=== PATIENT | male | born 1940 | race Caucasian/White ===

== ENCOUNTER → 2017-11-26 | Day surgery (SDC) | payer OTHER ==
[~2017-11-26] VITALS: Ht 177.8 cm; Wt 87.0 kg
[~2017-11-26] MED LIST: ACET-1257 PO; ACETAMINOPHEN 325 MG TAB PO PRN; ADENOSINE IV SOLN 3 MG/ML 20 ML VIAL ONE; ALFU10TA2 PO; ASPEC81 PO; ATV/1 PO; CHOL200010 PO; CLBCR15 TOP; CMBIN INH; FENTANYL CITRATE INJ 50 MCG/1 ML 2 ML VIAL ONE; FLUT220A INH; HEPARIN SOD (PORCINE) 1000 UNIT/ML 10 ML VIAL ONE; LPT40 PO; METO25TA3 PO; METR0.7536; MIDAZOLAM HCL 1 MG/ML 2ML VIAL ONE; NITROGLYCERIN/D5W 100MCG/ML 20ML SYR ONE; ONDANSETRON INJ 2 MG/ML 2 ML VIAL IV PRN; OXYC-57 PO; SODIUM CHLORIDE 0.9% 1000ML 250 ML IV PRN; SPRIN/30 INH; VNTHFA/IN INH; WARF5TAB90 PO
[2017-11-26 08:29] VITALS: BP 156/88; PULSE 78; TEMP 36.7; O2SAT 98; Ht 177.8 cm; Wt 87.0 kg
[2017-11-26 08:52] LABS: INR 1.2 (0.9-1.1)
--- NOTE | 2017-11-26 09:03 | History & Physical Bridge Note ---
H&P Re-Evaluation Bridge Note: I have examined the patient, reviewed the History & Physical and in the interval since the performance of the History & Physical I have noted the following changes of clinical significance: No changes noted
--- NOTE | 2017-11-26 09:25 | Pre Sedation Assessment ---
Pre Sedation Assessment General Date of Sedation: Nov 26, 2017. Vital Signs Past 12 Hours Date Time Temp Pulse Resp B/P (MAP) Pulse Ox O2 Delivery O2 Flow Rate FiO2 11/26/17 08:29 36.7 78 18 156/88 (110) 98 Room Air Review Cardiovascular: + irregularly irregular Lungs: lungs clear, normal breath sounds Pre-Sedation Airway Assessment Smoking Status: Former Smoker Hx of Sleep Apnea: No Short Thick Neck: No Thyro-mental Distance: > 3 Finger Breadths Oral Cavity: WNL Mallampati Classification: Class II ASA Classification: Class II NPO Status Date of Last Intake of Fluids: Nov 25, 2017 Date of Last Intake of Solids: Nov 25, 2017 Procedure Planning Contraindications for Sedation: None Current Medications Reviewed: Yes Notes The planned sedation has been discussed with the patient. Informed Consent was obtained. I have identified the patient, determined the appropriateness of sedation and have assessed the patient immediately prior to the procedure. All medicine(s) and interventions are by my order.
--- NOTE | 2017-11-26 10:38 | Post Sedation Assessment ---
Post Sedation Assessment General Date of Sedation Nov 26, 2017. Vital Signs: Vital Signs Past 12 Hours Date Time Temp Pulse Resp B/P (MAP) Pulse Ox O2 Delivery O2 Flow Rate FiO2 11/26/17 08:29 36.7 78 18 156/88 (110) 98 Room Air Post Procedure Recovery Score Activity: (2) Moves 4 extremities * Respiration: (2) Deep breath/cough Circulation: (2) +/-20% PreAnes Value Consciousness: (2) Fully Awake Oxygen Saturation: (2) > 92% On Room Air Post Anesthesia Score: 10 Discharge Sedation Level of Care: Fast Track Phase II Post Sedation Plan On clinical assessment, the patient appears to have tolerated the sedation without complications. Patient is recovering as anticipated. Patient will continue to be monitored by nursing and may be discharged when sedation discharge criteria are met per below protocol. Upon Completions of procedure and additional 15 minutes continue every 5 minute vital signs and the P.A.R. score; then discharge to a Phase I or Fast Track to Phase II per the following guidelines: * Discharge Patient to appropriate Phase II area if PAR is 8 or greater or return to pre- procedure baseline. The post - procedure orders will be as directed. * If PAR score is less than 8 or not return to pre-procedure baseline then patient will follow Phase I monitoring till PAR is reached for Phase II. The Phase I may be done in procedure room or may call to secure a Phase I area. * If naloxone or flumazenil are used for reversal, hold in Phase I for an additional 60 -120 minutes before discharge to Phase II. Please call the Sedation Physician to re-evaluate and complete post-note for discharge to Phase II area. Do NOT discharge from procedure sedation or Phase 1 until post- sedation evaluation note is complete by procedure /sedation MD Sedation Discharge Instructions to be given to the patient at discharge to home.
--- NOTE | 2017-11-26 11:02 | Cardiac Catheterization ---
Procedure Note Procedure Date Nov 26, 2017. Pre-Procedure Diagnosis Cardiothoracic Symptom AUC Score 7 Post-Procedure Diagnosis Moderate CAD Procedure(s) Performed Coronary Angiography, Left Heart Cath, Right Heart Cath Chief Sustainability Officer Dr. Page Partition Notcher(s) Diogenes [employer] [place] Estimated Blood Loss 8cc Medication(s) Fentanyl, Versed, Lidocaine 1% Summary of Findings Calcified LAD with focasl severe calcification proximally with 60% stenosis followed by a long moderately calcified 60% stenosis. Evidence of left to right shunt with step up in RV. Hemodynamics Rest Ao: 162/116/76 Final Ao: 156/113/76 LV: 163/5/12 RA: 7mmHg Sao2 75% SVC SaO2 75% RV: 37/5/7mmHg SaO2 78% PA: 33/15/23mmHg SaO2 79% PW: 14 Recommendations management recommendations (FFR LAD) Specimens None Radiation Exposure (mGy) 1135 Contrast (mls) 55 Anesthesia Moderate sedation. Start: 0948. End 1035. 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 Mild diffuse luminal irregularities 10-30%) D1 (% Stenosis): Ostial (30% calcified), Mid (30%, diffuse mild calcification) , Distal (10-20% diffuse) Circumflex (% Stenosis): Proximal (30%) OM1 (% Stenosis): Proximal (10%), Mid (diffuse 10-20%), Distal (30%) RCA (% Stenosis): Proximal (10%), Mid (30% long calcified segment), Distal (20 % long calcified segment) R PDA (% Stenosis): Normal R PL2 (% Stenosis): Proximal (30%)
--- NOTE | 2017-11-26 11:06 | Discharge Instructions ---
Discharge Instructions Procedure Procedure Date: Nov 26, 2017. Reason for Visit: Sob *[place] To Do. Discharge Discharge Date: Nov 26, 2017. Discharge Diagnosis: Moderate coronary artery disease normal pulmonary arterial pressures Left to right intracardiac shunt Last Recorded Wt (Kilograms): 87 Anesthesia Post Anesthesia Instructions: If you have had General Anesthesia or IV Sedation: * Do not drive today. * Resume driving when surgeon permits. * Do not make important decisions or sign legal documents today. * Call surgeon for: 1. Temperature elevations greater than 101 degrees F. 2. Uncontrollable pain. 3. Excessive bleeding. 4. Persistent nausea and vomiting. 5. Medication intolerance (nausea, vomiting or rash). * For nausea and vomiting use only clear liquids such as: tea, soda, bouillon until nausea subsides, then gradually increase diet as tolerated. * If you have any concerns or questions, call your surgeon's office. If physician is unavailable and it is an emergency, call 911 or go to the nearest emergency room. Instructions Activity Recommendations: limitations as noted below Return to School/Work: with the following limitations Recommended Home Diet: low sodium, low cholesterol Allergies: Coded Allergies: Finasteride (Verified Adverse Reaction, Mild, nervousness/tremors, 02/22/14 ) Provider Instructions ACTIVITY RECOMMENDATIONS: It is common to feel weak and fatigue for a few days. * Do not drive or operate any motorized equipment for the next three days. * Limit stair usage (2 or 3 trips a day only) for the next three days. * Do not lift anything heavier than 10 pounds for the next three days. * Do not engage in vigorous exercise or any sports for the next five days. * You may shower the day after your procedure, but do not immerse the area for three days. Cleanse the site gently with soap and water. SPECIAL CARE INSTRUCTIONS: * You may replace the pressure dressing or band-aid the morning after the procedure. * After your procedure, it is normal to have a small bruise or small lump at the site. Examine your site daily for any change in the bruise or lump, redness, swelling, drainage or numbness. Notify your doctor if any change. BLEEDING: * If there is a small amount of bleeding at the site, lie down and apply firm pressure with a clean cloth for ten minutes. When the bleeding stops, lie quietly keeping the procedure limb straight for six hours. Notify your doctor as soon as possible. * If the bleeding does not stop after ten minutes or if there is a large amount of bleeding or spurting, call 911 immediately. Continue to lie down and hold firm pressure until help arrives. SKIN IRRITATION: * You may experience some redness and/or swelling in the area where radiation was administered. If any skin irritation occurs, please contact your family physician. FOLLOW UP VISIT: Keep any scheduled doctor appointments. Follow Up Follow-up with: Dr. Ly as scheduled. Yuri Ferrari Recommendations: Call your doctor if: * Temperature above 101 degrees * Pain not relieved by pain medicine ordered * There is increased drainage or redness from any incision * You have any unanswered questions or concerns. Your Doctors Instructions noted above were prepared by provider Angel Page. Patient Signature Section: Patient Instructions Signature Page Mark Dumont Patient (or Guardian) Signature/Date: I have read and understand the instructions given to me by my caregivers. Caregiver/RN/Doctor Signature/Date: The above-named patient and/or guardian has received patient instructions on this date. + Original Patient Signature Page (only) stays with chart. Please make copy for patient.
[2017-11-26 15:00] VITALS: BP 144/74; PULSE 75; O2SAT 95
== END | disposition home or self-care (01) ==
LOC: C.CATH 08:18
PROVIDERS: ATTEND Internal Medicine Cardiovascular Disease
DX: R06.00 Dyspnea, unspecified (principal); E78.5 Hyperlipidemia, unspecified; F41.1 Generalized anxiety disorder; J44.9 Chronic obstructive pulmonary disease, unspecified; I48.2 Chronic atrial fibrillation; I25.10 Atherosclerotic heart disease of native coronary artery without angina pectoris; K21.9 Gastro-esophageal reflux disease without esophagitis; Z79.01 Long term (current) use of anticoagulants

== ENCOUNTER 2023-12-31 08:55 | Inpatient (IN) ==
--- NOTE | 2023-12-16 13:02 | PAT Medication Instructions ---
Medication Instructions Date of Service December 16, 2023 Home Medications aspirin 81 mg capsule 81 mg PO QAM atorvastatin 40 mg tablet 40 mg PO HS cholecalciferol (vitamin D3) 125 mcg (5,000 unit) tablet (Vitamin D3) 125 mcg PO QAM clobetasol 0.05 % topical cream 1 applic topical AMPM PRN Rash gabapentin 300 mg tablet 300 mg PO UD oxybutynin chloride 5 mg tablet 5 mg PO QAM oxycodone-acetaminophen 5 mg-325 mg tablet 1 tab PO QID PRN Pain ropinirole 4 mg tablet 4 mg PO QAM tamsulosin 0.4 mg capsule 0.4 mg PO BID trazodone 100 mg tablet 100 mg PO HS ASK your prescriber and surgeon aspirin 81 mg capsule 81 mg PO QAM STOP taking 24 hours before surgery clobetasol 0.05 % topical cream 1 applic topical AMPM PRN Rash DO NOT take the morning of surgery cholecalciferol (vitamin D3) 125 mcg (5,000 unit) tablet (Vitamin D3) 125 mcg PO QAM oxybutynin chloride 5 mg tablet 5 mg PO QAM Take morning of surgery With a small sip of water, OTHERWISE NOTHING TO EAT OR DRINK AFTER MIDNIGHT: gabapentin 300 mg tablet 300 mg PO UD oxycodone-acetaminophen 5 mg-325 mg tablet 1 tab PO QID PRN Pain (if needed) ropinirole 4 mg tablet 4 mg PO QAM tamsulosin 0.4 mg capsule 0.4 mg PO BID Take evening before surgery atorvastatin 40 mg tablet 40 mg PO HS gabapentin 300 mg tablet 300 mg PO UD oxycodone-acetaminophen 5 mg-325 mg tablet 1 tab PO QID PRN Pain (if needed) tamsulosin 0.4 mg capsule 0.4 mg PO BID trazodone 100 mg tablet 100 mg PO HS Other Notes If you have any questions please call us at [phone] or [phone] or [phone] or [phone]
--- NOTE | 2023-12-19 09:59 | Anesthesiology Consultation ---
Date of Service December 19, 2023 Assessment & Plan (1) Encounter for pre-operative examination: - Infectious disease screening: Per assessment on 12/19/23: No known recent infectious disease contacts or current infectious disease symptoms. - ASA instructions per surgeon/prescriber - Cardiology visit (12/16/23): "Preoperative cardiovascular examination.. Patient is stable from a cardiac standpoint. Recent ischemic work up is negative.. per Franki Criteria, patient was counseled that hewould be placed at a intermediaterisk for any adverse perioperative cardiovascular events associated withspine surgery. Patient is on a good medication regimen and no other cardiac testing or interventions would further lower that risk.Patient statesheunderstands and is accepting ofthat risk and wishes to proceed with surgery.. patient is current on ASA 81mg daily. If surgeon allows for patient to remain on ASA that would be advised. If patient is to interrupt his ASA therapy, please hold no more than 7 days pre-op and resume post op day 1 or when risk for post op bleeding is reduced.. Follow up 6 months or if symptoms worsen/fail to improve." Chart Review Chart Review: Acceptable Risk for Surgery and Patient seen in Pre Admission Testing Teaching & Discussion Pre-Anesthesia Teaching/Discussion Notes: Instructed NPO after midnight before surgery,except medications with 15 cc of water. Medication instructions provided according to the PAT guidelines. History Surgery Operation Date: 12/31/23 11:05 Proposed Procedures p T12-L2 Decompression, T12-L1 Fusion attach to Previous Hardware - Jose King, Height/Weight Height: 5 ft 10 in Weight: 98.1 kg Allergies Allergy/AdvReac Type Severity Reaction Status Date / Time finasteride AdvReac Mild Nervousness, Verified 12/17/23 10:08 tremors Medications Home Medications Medication Instructions Recorded Confirmed Last Taken aspirin 81 mg capsule 81 mg PO QAM 12/15/23 12/15/23 Unknown atorvastatin 40 mg tablet 40 mg PO HS 12/15/23 12/15/23 Unknown cholecalciferol (vitamin D3) 125 125 mcg PO QAM 12/15/23 12/15/23 Unknown mcg (5,000 unit) tablet (Vitamin D3) clobetasol 0.05 % topical cream 1 applic topical AMPM PRN Rash 12/15/23 12/15/23 Unknown gabapentin 300 mg tablet 300 mg PO UD 12/15/23 12/15/23 Unknown oxybutynin chloride 5 mg tablet 5 mg PO QAM 12/15/23 12/15/23 Unknown oxycodone-acetaminophen 5 mg-325 1 tab PO QID PRN Pain 12/15/23 12/15/23 Unknown mg tablet ropinirole 4 mg tablet 4 mg PO QAM 12/15/23 12/15/23 Unknown tamsulosin 0.4 mg capsule 0.4 mg PO BID 12/15/23 12/15/23 Unknown trazodone 100 mg tablet 100 mg PO HS 12/15/23 12/15/23 Unknown Past Medical History Medical History Atrial fibrillation Hx cardioversion, Watchman procedure (2021) BPH (benign prostatic hyperplasia) CAD (coronary artery disease) Cath 2018: Calcified LAD with focal severe calcification proximally with 60% stenosis followed by a long moderately calcified 60% stenosis > Medical management recommended Follows with cardio/Dr. Ly (will see on 12/15) Chronic back pain COPD (chronic obstructive pulmonary disease) History of prostate cancer 28 XRT- ended 04/2023 Hx of colonic polyps Hx of lower gastrointestinal bleeding [facility] admission (bleed after colon polyp removal) Hyperlipidemia Hypertension Lung nodule Left sided, "small" Stable, "no changes" since 2018 Presence of Watchman left atrial appendage closure device (2021) Restless leg syndrome Exercise / Class Metabolic Activity III < 4 Walking/Shop/Light housework Past Surgical History Surgical History History of cardioversion (2013) History of lumbar fusion (2020) Rods + screws, L2 to S1 Hx of appendectomy (1957) Hx of bilateral cataract extraction (2019) Hx of cardiac catheterization Multiple, most recent 2018 Hx of cervical spine surgery (2013) C5 (plate + screws) Hx of colonoscopy with polypectomy Hx of hernia repair (11/2021) Hx of prostate biopsy Past Anesthesia History No Hx of Anesthesia Complications and No Family Hx of Anesthesia Complications History of PONV No Hx of PONV and No Hx of Motion Sickness Social History Smoking Status: Former smoker Do You Dip or Chew Tobacco: No Smoking End Date: Quit 2004 Hx Alcohol Use: Yes alcohol intake frequency: a few times a month Hx Substance Use: No substance use type: does not use Review of Systems Patient denies chest pain, shortness of breath, fever, chills, cough, wheezing, palpitations. Physical Exam Vital Signs BP 126/64 P 69 TEMP 97.9 SP02 96%RA RESP 16 Physical Mildly decreased cervical extension range of motion. Full TMJ range of motion. TMD 3 finger breaths Mallampati Score I Dentition: upper partial, doesn't wear lower partial Lungs: clear throughout to auscultation Cardiac: regular rate, irregularly irregular rhythm, no murmurs noted Spine: normal Carotid arteries: negative bruit Extremities: no LE edema Trimmed rosa Lab Results Anesthesia Preop Results Results Anesthesia Widget: WBC 4.51 K/ul (4.8-10.8) L 12/19/23 Hgb 13.0 g/dl (14.0-18.0) L 12/19/23 Hct 38.1 % (42.0-52.0) L 12/19/23 Plt 142 K/uL (130-400) 12/19/23 Na 139 mmol/L (136-145) 12/19/23 K 3.9 mmol/L (3.5-5.1) 12/19/23 Cl 103 mmol/L (98-107) 12/19/23 CO2 30 mmol/L (21-32) 12/19/23 BUN 11 mg/dl (6-23) 12/19/23 Creat 0.72 mg/dl (0.6-1.4) 12/19/23 Glucose Level 106 mg/dl (70-99(Fasting)) H 12/19/23 PT 11.0 Seconds (9.0-12.0) 12/19/23 PTT 28 Seconds (21-31) 12/19/23 INR 1.0 (0.9-1.1) 12/19/23 Urine Color Yellow 12/19/23 Urine Appearance Clear (Clear) 12/19/23 Urine pH 7.5 (4.5-7.5) 12/19/23 Urine Specific [place] 1.014 (1.000-1.030) 12/19/23 Urine Protein Negative (Negative) 12/19/23 Urine Glucose (UA) Negative (Negative) 12/19/23 Urine Ketones Negative (Negative) 12/19/23 Urine Blood Negative (Negative) 12/19/23 Urine Nitrite Negative (Negative) 12/19/23 Urine Bilirubin Negative (Negative) 12/19/23 Urine Urobilinogen Negative (Negative) 12/19/23 Urine Leukocyte Esterase Negative (Negative) 12/19/23 Blood Type O Positive 12/19/23 Antibody Screen NEGATIVE 12/19/23 Testing Electrocardiogram Date: 11/13/23 A. fib with slow ventricular response with PVCs at 54bpm. NS STA. Chest X-Ray Date: 12/19/23 FINDINGS: No pneumothorax. No pleural effusions. No focal lung consolidations to suggest pneumonia. No evidence for pulmonary edema. The heart is mildly enlarged. Cervical spinal fusion hardware is noted. Partially visualized lumbar spinal fusion hardware. An atrial appendage occlusion device is noted. IMPRESSION: Stable mild cardiomegaly. Otherwise, no acute process within the chest. Echocardiogram Date: 05/14/22 LVEF 55 to 59%. Small sized basal inferior and posterior wall motion abnormality with hypokinesis of the segments. Watchman left atrial appendage occlusion device noted. There is no adherent thrombus noted. There is trivial flow through the face of the device and a 0.6 cm peridevice leak noted superiorly around the device. Mild RVD. Mild MR/TR. Stress Test Date: 12/04/23 Type: nuclear Lexiscan nuclear cardiac stress test negative for ischemia. LVEF 54%. Gated SPECT images reveal normal myocardial thickening and wall motion. Decreased counts noted in inferior wall that improved with stress suggestive of attenuation artifact.
[~2023-12-31 08:55] MED LIST changes: -ACET-1257 PO; -ACETAMINOPHEN 325 MG TAB PO PRN; -ADENOSINE IV SOLN 3 MG/ML 20 ML VIAL ONE; -ALFU10TA2 PO; -ASPEC81 PO; -ATV/1 PO; -CHOL200010 PO; -CLBCR15 TOP; -CMBIN INH; +DEXAMETHASONE SOD INJ 4 MG/ML VIAL ONE; -FENTANYL CITRATE INJ 50 MCG/1 ML 2 ML VIAL ONE; -FLUT220A INH; +GLYCOPYRROLATE 0.2 MG/ML VIAL ONE; -HEPARIN SOD (PORCINE) 1000 UNIT/ML 10 ML VIAL ONE; +LIDOCAINE 2% 2 ML VIAL/AMP(20MG/ML) INFIL ONE; -LPT40 PO; -METO25TA3 PO; -METR0.7536; -NITROGLYCERIN/D5W 100MCG/ML 20ML SYR ONE; -ONDANSETRON INJ 2 MG/ML 2 ML VIAL IV PRN; +ONDANSETRON INJ 2 MG/ML 2 ML VIAL ONE; -OXYC-57 PO; +PROPOFOL IV EMULSION 10 MG/ML 20 ML VIAL IV ONE; +ROCURONIUM BROMIDE 10 MG/ML 5 ML VIAL IV ONE; -SODIUM CHLORIDE 0.9% 1000ML 250 ML IV PRN; -SPRIN/30 INH; +SUGAMMADEX SODIUM 200 MG/2 ML VIAL IV ONE; -VNTHFA/IN INH; -WARF5TAB90 PO; +fentaNYL citrate PF 100 MCG/2 ML VIAL ONE
[2023-12-31] MEDS: LR 60ML/HR IV SCH (09:38)
[2023-12-31] MEDS: GABAPENTIN 300 MG CAP PO SCH ×2 (09:38→20:32)
[2023-12-31] MEDS: CeleBREX 200 MG CAP PO SCH (09:38)
[2023-12-31] MEDS: ACETAMINOPHEN 500 MG TAB PO SCH (09:38)
[2023-12-31] MEDS ORDERED: ATROPINE SULFATE 0.1 MG/ML 10ML SYR IV PRN (09:41)
[2023-12-31] MEDS ORDERED: PROMETHAZINE HCL 6.25 MG in SODIUM CHLORIDE 0.9% 50 ML IV PRN (09:41)
[2023-12-31] MEDS ORDERED: ePHEDrine sulfate 50 MG/ML AMP IV PRN (09:41)
[2023-12-31] MEDS: LR 15ML/HR IV SCH (09:42)
--- NOTE | 2023-12-31 10:14 | History & Physical Bridge Note ---
Date of Service December 31, 2023 History & Physical Bridge Note I have examined the patient, reviewed the History & Physical and in the interval since the performance of the History & Physical I have noted the following changes of clinical significance: no changes noted
--- NOTE | 2023-12-31 10:16 | History & Physical Report ---
Date of Service December 31, 2023 Assessment & Plan (1) Neurogenic claudication due to lumbar spinal stenosis: Plan: T12-L2 decompression, T12-L1 1 fusion, attached to previous hardware, possible removal of hardware. History of Present Illness Chief Complaint: Back and bilateral leg pain Primary Care Provider: Cammie Martinez PA-C This is a this is an 83-year-old male who presents with chronic persistent back and bilateral leg pain after failing course of nonoperative care is here for romero rgical invention. Allergies Allergy/AdvReac Type Severity Reaction Status Date / Time finasteride AdvReac Mild Nervousness, Verified 12/31/23 09:20 tremors Home Medications Medication Instructions Recorded Confirmed Type aspirin 81 mg capsule 81 mg PO QAM 12/15/23 12/31/23 History atorvastatin 40 mg tablet (Lipitor) 40 mg PO HS 12/15/23 12/31/23 History cholecalciferol (vitamin D3) 125 125 mcg PO QAM 12/15/23 12/31/23 History mcg (5,000 unit) tablet (Vitamin D3) clobetasol 0.05 % topical cream 1 applic topical AMPM PRN Rash 12/15/23 12/31/23 History gabapentin 300 mg tablet 300 mg PO UD 12/15/23 12/31/23 History oxybutynin chloride 5 mg tablet 5 mg PO QAM 12/15/23 12/31/23 History oxycodone-acetaminophen 5 mg-325 1 tab PO QID PRN Pain 12/15/23 12/31/23 History mg tablet (Percocet) ropinirole 4 mg tablet 4 mg PO QAM 12/15/23 12/31/23 History tamsulosin 0.4 mg capsule 0.4 mg PO BID 12/15/23 12/31/23 History trazodone 100 mg tablet 100 mg PO HS 12/15/23 12/31/23 History Past Med/Surg History Problem List (Updated 12/31/23 @ 10:15 by Jose King DO) Neurogenic claudication due to lumbar spinal stenosis Encounter for pre-operative examination Cervical stenosis of spinal canal (Acute 10/13/13) Asthma (Chronic) Medical History Atrial fibrillation Hx cardioversion, Watchman procedure (2022) BPH (benign prostatic hyperplasia) CAD (coronary artery disease) Cath 2018: Calcified LAD with focal severe calcification proximally with 60% stenosis followed by a long moderately calcified 60% stenosis > Medical management recommended Follows with cardio/Dr. Ly (will see on 12/15) Chronic back pain COPD (chronic obstructive pulmonary disease) History of prostate cancer 28 XRT- ended 04/2023 Hx of colonic polyps Hx of lower gastrointestinal bleeding [facility] admission (bleed after colon polyp removal) Hyperlipidemia Hypertension Lung nodule Left sided, "small" Stable, "no changes" since 2018 Presence of Watchman left atrial appendage closure device (2021) Restless leg syndrome Surgical History History of cardioversion (2013) History of lumbar fusion (2020) Rods + screws, L2 to S1 Hx of appendectomy (1957) Hx of bilateral cataract extraction (2019) Hx of cardiac catheterization Multiple, most recent 2018 Hx of cervical spine surgery (2013) C5 (plate + screws) Hx of colonoscopy with polypectomy Hx of hernia repair (11/2021) Hx of prostate biopsy Social History Smoking Status: Former smoker Tobacco Type: Cigarettes Smoking End Date: Quit 2004; Second Hand Exposure: No; Do You Dip or Chew Tobacco: No; Tobacco Cessation Education Requested by Patient: No Hx Alcohol Use: Yes Hx Substance Use: No Preferred Language: Serbian Communication Ability: Effective Art Coordinator Required: No Beliefs That Will Affect Care: Scientologist Scientologist Beliefs: presbyterian Current Living Situation: Spouse Other Information That Helps Us Care for You: No Feels Safe at Home: Yes Safety Concerns: Feels Safe At This Time Assistive Devices: Denture - Upper, Denture - Lower and Glasses Physical Exam Physical Exam: Patient is alert and oriented Heart regular rhythm Lungs clear Results & Data Results & Data Vital Signs (Past 12 Hours) Vital Signs Temp Pulse Resp BP Pulse Ox O2 Del Method 12/31/23 09:25 36.5 C 70 20 164/85 H 97 Room Air
[2023-12-31] MEDS: ceFAZolin 2000MG 2,000 MG/15 ML SYR IV SCH ×2 (10:45→20:35)
[2023-12-31] MEDS: ceFAZolin 330 MG/ML 1 GM VIAL ONE (11:37)
[2023-12-31] MEDS ORDERED: fentaNYL citrate PF 100 MCG/2 ML VIAL ONE (11:56)
[2023-12-31] MEDS: BUPIVACAINE/EPINEPHRINE 0.25% 1:200,000 30 ML VIAL ONE ×2 (12:32)
[2023-12-31] MEDS: FLOSEAL HEMOSTATIC MATRIX 10ML TOP ONE (13:23)
--- NOTE | 2023-12-31 13:31 | Operative Report ---
Post Operative Report Pre & Post Diagnosis Operation Date: 12/31/23 10:45 Pre-Op Diagnosis: Lumbar spinal stenosis with neurogenic claudication Post-Op Diagnosis: Same I identified the patient and participated in the time-out.: Yes Procedure Operation Date: 12/31/23 10:45 Actual Procedures #1 removal of posterior instrumentation L2-S1. #2 exploration of fusion L2-S1. #3 lumbar decompression with bilaterally facetectomies and foraminotomies T12-L1 L1-L2. #4 posterior spinal fusion T12-L2. #5 placed posterior instrumentation T12-S1. #6 interbody fusion L1-L2. #7 placement of Spira 10 x 26 mm cage at L1-L2. #8 placement locally harvested morselized autograft posterior gutters. #9 placement infuse collagen sponge combined with Koros in the posterior lateral gutters and os design interbody space. #10 placement of versa wrap over the exposed dura. Surgeon Jose King, DO Movie Extra Columba Briones Estimated Blood Loss 1,100 Findings Consistent with Post-Op Diagnosis Specimens None Indications This is an 83-year-old male who presents problems diagnosis after failing course of nonoperative care is here for surgical invention. Description of Procedure Patient was met with identified informed consent obtained. Patient was then taken to the operative suite underwent intubation placed in a prone position on the Carlos table on top of the Tripp frame. All bony promises well-padded I suspected to ensure no external precipice upon them. Lumbar spine was then prepped and draped in normal sterile fashion. Sharp dissection with the assistance of Bovie cautery was performed down to and exposing the lamina transverse processes of T12-L1 and instrumentation from L2-S1 bilaterally. I then proceeded to move the hardware bilaterally explored the fusion mass at all levels noting it to be mature and intact. Informed complete laminectomy of L1 including bilateral medial facetectomies and foraminotomies followed by laminectomy of T12 with bilateral medial facetectomies. Pedicle screws were then placed in L1-L2 L4 and S1 on the left, on the right pedicle screws were placed in T12 L1-L2 L4 and S1. Appropriate size rods were then contoured and placed. By way of transforaminal approach on the left a complete discectomy of L1-L2 was performed endplates guarded to subcortical bleeding bone and a 10 x 26 mm Spira cage filled with os design tapped in position. The rods were then locked in final position bilaterally. Bone graft was placed in the posterior gutters from T12-L2. Versa wrap was placed over the exposed dura and a 15 round KENDAL drain inserted. Incision was then closed with 1 Vicryl to fascia 2-0 Vicryl subcutaneously and 4 Monocryl for final skin closure. Steri-Strips sterile dressing placed. Patient waken taken to PACU stable condition. Please note spinal cord monitoring was utilized at the procedure no changes noted. Kelsey Briones was present at the entire surgery involved the patient positioning complex portion of the surgery and final skin closure. Im ordering 20 grams of Triple Kirkman Collagen Powder (Numari [id number]) to treat an incision wound that was caused by a spine procedure. The incision is approximately 2 cm(W) x 4 cm(L) into the joint (D) in size and is a full thickness wound. Triple Kirkman collagen comes in 1 gram packets so 20 packets were ordered. Given the size of the wound, with light to moderate exudate I chose to order a 20 day supply. The patient will be provided instructions for proper application of the collagen wound kit. The patient will be asked to apply the collagen powder daily and then cover it with sterile dressings dispensed. Collagen was selected as I expect the collagen to attract monocytes and fibroblasts, act as a sacrificial substrate for MMPs, and ultimately proved a matrix for tissue and vessel growth. The collagen will act as a primary dressing in this scenario. It is medically necessary for proper healing of these wounds to improve bioavailability and contact with each wound surface, this is also to help prevent infection of wounds and promote healing ultimately leading to a better healing outcome and limit the risk of infection. I attest to the content of the Intraoperative Record and any orders documented therein. Any exceptions are noted below.
[2023-12-31] MEDS: HYDROmorphone INJ 1 MG/ML SYRINGE IV PRN (14:00)
--- NOTE | 2023-12-31 14:00 | Fluoroscopy Report ---
FL lumbar spine 2-3V CLINICAL HISTORY: T12-L2 DECOMP COMPARISON STUDY: None FLUOROSCOPY TIME: 25 seconds. Ka, r: 21.62 mGy FLUOROSCOPIC IMAGES: 4 FINDINGS: Fluoroscopy was provided during hardware removal and subsequent decompression and fusion. E xact localization is difficult however findings suggest L1-L2 discectomy with interbody spacer placem ent. Posterior fusion hardware extends from T12 through S1. Hardware is intact. Surgical drain is in place. IMPRESSION: Fluoroscopy provided during hardware removal and subsequent decompression and fusion, as described above. ACT 112: Negative or not required by law. Electronically signed by: Kendall Ocampo M.D. 12/31/2023 1:58 PM
--- NOTE | 2023-12-31 15:11 | Anesthesiology Progress Note ---
Date of Service December 31, 2023 Anesthesia Post Procedure Vital Signs Vital Signs: Temp Pulse Pulse Resp BP Pulse Ox O2 Del Method 12/31/23 15:00 62 18 113/71 94 Nasal Cannula 12/31/23 14:45 73 12 119/66 94 Nasal Cannula 12/31/23 14:30 36.3 C L 79 13 129/69 95 Oxymask 12/31/23 14:20 87 10 L 129/68 96 Oxymask 12/31/23 14:10 84 16 123/67 93 Oxymask 12/31/23 14:00 83 17 136/73 95 Oxymask 12/31/23 13:50 70 16 115/65 97 Oxymask 12/31/23 13:44 36.1 C L 66 10 L 104/57 L 96 Oxymask 12/31/23 09:25 36.5 C 70 20 164/85 H 97 Room Air O2 Flow Rate 12/31/23 15:00 2 12/31/23 14:45 2 12/31/23 14:30 2 12/31/23 14:20 4 12/31/23 14:10 4 12/31/23 14:00 4 12/31/23 13:50 6 12/31/23 13:44 10 12/31/23 09:25 Pain Intensity Back: Pain Intensity: 2 Transfer of Care Handoff Completed per policy Notes Mental Status: alert / awake / arousable and participated in evaluation Nausea / Vomiting: adequately controlled Pain: adequately controlled Airway Patency, RR, SpO2: stable & adequate BP & HR: stable & adequate Hydration State: stable & adequate Anesthetic Complications: no major complications apparent and Pt Satisfied with anesthetic care
[2023-12-31] MEDS ORDERED: DO NOT ADMINISTER FLU VACCINE PRN (15:25)
[2023-12-31] MEDS ORDERED: hydrOXYzine HCl 25 MG TAB PO PRN (15:25)
[2023-12-31] MEDS ORDERED: LORazepam 0.5 MG TAB PO PRN (15:25)
[2023-12-31] MEDS ORDERED: MAGNESIUM HYDROXIDE SUSP 30 ML UDC PO PRN (15:25)
[2023-12-31] MEDS ORDERED: HYDROmorphone INJ 0.5 MG/0.5 ML SYR IV PRN (15:25)
[2023-12-31] MEDS ORDERED: LORazepam 2 MG/1 ML VIAL IV PRN (15:25)
[2023-12-31] MEDS ORDERED: diphenhydrAMINE Capsule 25 MG CAP PO PRN (15:25)
[2023-12-31] MEDS ORDERED: PROMETHAZINE 12.5 MG/50.5 ML BAG IV PRN (15:25)
[2023-12-31] MEDS ORDERED: FAMOTIDINE 20 MG TAB PO PRN (15:25)
[2023-12-31] MEDS ORDERED: METOCLOPRAMIDE HCL INJ 5 MG/ML 2 ML VIAL IV PRN (15:25)
[2023-12-31] MEDS ORDERED: ACETAMINOPHEN 1,000 MG/100 ML VIAL IV PRN (15:25)
[2023-12-31] MEDS ORDERED: SOD PHOSPHATE/SOD BIPHOSPHATE ENEMA 132 ML BTL PR PRN (15:25)
[2023-12-31] MEDS ORDERED: ALUMINUM/MAGNESIUM SUSP 30 ML UDC PO PRN (15:25)
[2023-12-31] MEDS ORDERED: NALOXONE HCL 0.4 MG/1 ML VIAL/CARP IV PRN (15:25)
[2023-12-31] MEDS ORDERED: CLOBETASOL PROPIONATE 0.05% CREAM 15 GM TUBE TOP PRN (15:25)
[2023-12-31] MEDS ORDERED: DO NOT ADMINISTER PNEUMOCOCCAL VACCINE PRN (15:25)
--- NOTE | 2023-12-31 15:37 | Hospitalist Consultation ---
Date of Consultation December 31, 2023 Assessment & Plan (1) S/P lumbar spine operation: Plan Mark Dumont is an 83y/o M with PMHx of HLD, COPD, OTIS lung nodule, permanent afib s/p Watchman procedure in 2021 [not on anticoagulation therapy], CAD, hepatomegaly, GERD, BPH w/ LUTS, history of prostate cancer, restless legs syndrome, tobacco use disorder [80 pk yr - quit in 2004], TERA and other problems listed below who was referred to our [facility] Hospitalist Team for post-o perative medical management after undergoing T12-L2 decompression and T12-L1 fusion with hardware involvement by Dr. King on 12/31/23. S/P Lumbar Spine Operation: POD#0 s/p T12-L2 decompression and T12-L1 fusion with hardware involvement with Dr. King. EBL: 1,100mL & Pre-Op Hgb: 13 [12/19/23] Vitals stable. Was previously on 2L, now weaned down to RA. Per ortho for pain control, wound care, anticoagulation and activities. Continue incentive spirometry, PT/OT when appropriate. Follow AM labs. Monitor H/H for acute blood loss anemia and transfuse blood products PRN. Can continue using MECHANICAL ENGINEERING SPECIALIST gabapentin and trazodone for neurogenic claudication sx's. Permanent Afib s/p Watchman Procedure: Follows [facility] Cardiology as outpatient. No longer on metoprolol or AC therapy. Can continue ASA therapy as recommended at most recent cardiology visit prior to surgery on 12/16/23. HLD & CAD: Continue ASA and atorvastatin. Had nuclear stress testing done 12/04/23 that was negative for inducible ischemia. Patient with h/o cardiac catheterization in 2018 with findings of a 60% mid LAD lesion that was not considered hemodynamically significant. BPH w/ LUTS: Continue tamsulosin and oxybutynin. Restless Legs Syndrome: Continue ropinirole. Prostate Cancer: On ADT with bicalutamide started 10/23/2022, and leuprolide (Eligard) 22.5mg [id number] started 10/29/2022. Definitive radiation therapy recently completed 03/27/2023. Follows [facility] Urology - most recent visit on 11/12/23. COPD, H/O Tobacco Use Left Upper Lobe Lung Nodule: Has followed w/ [facility] Pulmonary Medicine in the past. 80 pk yr smoking hx. OTIS nodule stable - no further f/u required according to documentation from 2020. DVT Prophylaxis: SCDs/TEDs as per primary care team. Code Status: FULL CODE PCP: Cammie Martinez PA-C Disposition: Admitted in Med/Surg - Discharge planning as per primary care team. Thank you for this consultation. We will follow the patient with you during their hospital stay. You can reach a member of the [facility] Hospitalist Team 11/11 via [employer]. Patient seen in collaboration with Dr. Barnett. Please see addendum. I spent a total of 45 minutes coordinating, documenting, and providing care for this patient excluding time spent in the performance of separately billed services. This included personally reviewing all current laboratories and imaging studies, medical reconciliation, outpatient chart review and discussion with specialists. This chart was completed in part utilizing Speech Voice Recognition Software. Grammatical errors, random word insertions, pronoun errors, and incomplete sentences are an occasional consequence of this system due to software limitations, ambient noise, and hardware issues. Any formal questions or concerns about the content, text, or information contained within the body of this dictation should be directly addressed to the provider for clarification. Supervising Physician Co-Signing Physician Notes Patient is an 83-year-old male with history of permanent atrial fibrillation s/p watchman's procedure, BPH, prostate cancer, COPD, pulmonary nodule and other medical problems was consulted for postop medical management. Patient is doing well postoperatively. Reports pain at surgical site but otherwise no complaints. He denies any chest pain, dyspnea, cough, nausea, vomiting, abdominal pain. Please review HPI for complete details of presentation. I personally reviewed the record. Physical Exam: Vitals signs as noted above General Appearance: Obese, no apparent distress Head: normocephalic, Atraumatic Eyes: normal inspection, EOMI Neck: supple, Trachea midline Respiratory/Chest: Decreased breath sounds, CTA, No accessory muscle use Cardiovascular: Irregularly irregular, No murmur Abdomen/GI:Soft, Non tender, Bowel sounds present Extremities/Musculoskeletal:normal inspection, no edema Neurologic/Psych:AAOX3, grossly no focal neurological deficits Back: Surgical site in dressing,+ drain Skin: normal color, warm Lumbar spinal stenosis with neurogenic claudication S/P lumbar decompression, fusion surgery by Dr. King by Dr. King on 12/31/2023 Monitor for postop anemia Bowel regimen to prevent constipation Incentive spirometry DVT prophylaxis, activity, pain control by primary team PT OT as able Other chronic conditions Stable Continue home medications as able I personally interviewed and examined at bedside. Patient's care is coordinated with Josee Sears PA-C. I have reviewed the advanced practitioner's documentation, and I agree with plan of care. Please refer to the documentation above for details of patient's presentation and for discussion of other issues. I spent a total of20 minutes coordinating, documenting, and providing care for this patient excluding time spent in the performance of separately billed services. History of Present Illness Reason for Consultation: Post-Operative Medical Management Requesting Physician: Jose King DO Attending Physician: Jose King DO History of Present Illness Mark Dumont is an 83y/o M with PMHx of HLD, COPD, OTIS lung nodule, permanent afib s/p Watchman procedure in 2021 [not currently on anticoagulation therapy], CAD, hepatomegaly, GERD, BPH w/ LUTS, history of prostate cancer, restless legs syndrome, tobacco use disorder, TERA and other problems listed below [facility] after undergoing T12-L2 decompression and T12-L1 fusion with hardware involvement by Dr. King on 12/31/23. History obtained from patient and associated chart review. Patient currently reporting 5/10 pain across his lower back region. Has been tolerating sips of water without issue. Has a Banegas cath in place that is draining clear, yellow urine without issue. Denies any hest pain, SOB or abdominal pain. Has not been out of bed yet. Has not passed gas or passed a BM yet. Patient with no major concerns or questions at this time. Allergies Allergy/AdvReac Type Severity Reaction Status Date / Time finasteride AdvReac Mild Nervousness, Verified 12/31/23 09:20 tremors Home Medications Medication Instructions Recorded Confirmed Type aspirin 81 mg capsule 81 mg PO QAM 12/15/23 12/31/23 History atorvastatin 40 mg tablet (Lipitor) 40 mg PO HS 12/15/23 12/31/23 History cholecalciferol (vitamin D3) 125 125 mcg PO QAM 12/15/23 12/31/23 History mcg (5,000 unit) tablet (Vitamin D3) clobetasol 0.05 % topical cream 1 applic topical AMPM PRN Rash 12/15/23 12/31/23 History gabapentin 300 mg tablet 300 mg PO UD 12/15/23 12/31/23 History oxybutynin chloride 5 mg tablet 5 mg PO QAM 12/15/23 12/31/23 History oxycodone-acetaminophen 5 mg-325 1 tab PO QID PRN Pain 12/15/23 12/31/23 History mg tablet (Percocet) ropinirole 4 mg tablet 4 mg PO QAM 12/15/23 12/31/23 History tamsulosin 0.4 mg capsule 0.4 mg PO BID 12/15/23 12/31/23 History trazodone 100 mg tablet 100 mg PO HS 12/15/23 12/31/23 History Patient History Medical History CAD (coronary artery disease) Cath 2018: Calcified LAD with focal severe calcification proximally with 60% stenosis followed by a long moderately calcified 60% stenosis > Medical management recommended Follows with cardio/Dr. Ly (will see on 12/15) Chronic back pain History of prostate cancer 28 XRT- ended 04/2023 Hx of lower gastrointestinal bleeding [facility] admission (bleed after colon polyp removal) Hx of colonic polyps BPH (benign prostatic hyperplasia) Restless leg syndrome Hypertension Atrial fibrillation Hx cardioversion, Watchman procedure (2021) Lung nodule Left sided, "small" Stable, "no changes" since 2018 COPD (chronic obstructive pulmonary disease) Presence of Watchman left atrial appendage closure device (2021) Hyperlipidemia Surgical History History of cardioversion (2013) Hx of prostate biopsy Hx of colonoscopy with polypectomy Hx of cardiac catheterization Multiple, most recent 2018 Hx of bilateral cataract extraction (2019) Hx of hernia repair (11/2021) History of lumbar fusion (2020) Rods + screws, L2 to S1 Hx of cervical spine surgery (2013) C5 (plate + screws) Hx of appendectomy (1957) Social History Smoking Status: Former smoker Tobacco Type: Cigarettes Smoking End Date: Quit 2004; Second Hand Exposure: No; Do You Dip or Chew Tobacco: No; Tobacco Cessation Education Requested by Patient: No Hx Alcohol Use: Yes Hx Substance Use: No Preferred Language: Italian Communication Ability: Effective Pathological Technician Required: No Beliefs That Will Affect Care: Islam Islam Beliefs: presbyterian Current Living Situation: Spouse Other Information That Helps Us Care for You: No Feels Safe at Home: Yes Safety Concerns: Feels Safe At This Time Assistive Devices: Denture - Upper, Denture - Lower and Glasses Review of Systems Review of Systems: At least ten systems reviewed and negative, except as noted in the HPI. Results & Data Results & Data Vital Signs (Past 12 Hours) Vital Signs Temp Pulse Pulse Resp BP Pulse Ox O2 Del Method 12/31/23 15:21 36.3 C L 72 18 127/79 96 Nasal Cannula 12/31/23 15:00 62 18 113/71 94 Nasal Cannula 12/31/23 14:45 73 12 119/66 94 Nasal Cannula 12/31/23 14:30 36.3 C L 79 13 129/69 95 Oxymask 12/31/23 14:20 87 10 L 129/68 96 Oxymask 12/31/23 14:10 84 16 123/67 93 Oxymask 12/31/23 14:00 83 17 136/73 95 Oxymask 12/31/23 13:50 70 16 115/65 97 Oxymask 12/31/23 13:44 36.1 C L 66 10 L 104/57 L 96 Oxymask 12/31/23 09:25 36.5 C 70 20 164/85 H 97 Room Air O2 Flow Rate 12/31/23 15:21 2 12/31/23 15:00 2 12/31/23 14:45 2 12/31/23 14:30 2 12/31/23 14:20 4 12/31/23 14:10 4 12/31/23 14:00 4 12/31/23 13:50 6 12/31/23 13:44 10 12/31/23 09:25 Diagnostic Findings Lumbar Spine X-Ray 12/31/23 10:45 FL lumbar spine 2-3V CLINICAL HISTORY: T12-L2 DECOMP COMPARISON STUDY: None FLUOROSCOPY TIME: 25 seconds. Ka, r: 21.62 mGy FLUOROSCOPIC IMAGES: 4 FINDINGS: Fluoroscopy was provided during hardware removal and subsequent decompression and fusion. Exact localization is difficult however findings suggest L1-L2 discectomy with interbody spacer placement. Posterior fusion h ardware extends from T12 through S1. Hardware is intact. Surgical drain is in place. IMPRESSION: Fluoroscopy provided during hardware removal and subsequent decompression and fusion, as described above. ACT 112: Negative or not required by law. Electronically signed by: Kendall Ocampo M.D. 12/31/2023 1:58 PM Medications Administered Acetaminophen (Acetaminophen 500 Mg Tab) 1,000 mg PO PREOP SIDNEY Stop: 12/31/23 18:00 Last Admin: 12/31/23 09:38 Dose: 1,000 mg Documented By: DINO Celecoxib (Celebrex 200 Mg Cap) 200 mg PO PREOP SIDNEY Stop: 12/31/23 18:00 Last Admin: 12/31/23 09:38 Dose: 200 mg Documented By: DINO Gabapentin (Gabapentin 300 Mg Cap) 300 mg PO PREOP SIDNEY Stop: 12/31/23 18:00 Last Admin: 12/31/23 09:38 Dose: 300 mg Documented By: DINO Lactated Ringer's (Lr) 1,000 mls @ 15 mls/hr IV .Q24H SIDNEY Stop: 01/01/24 05:59 Last Infusion: 12/31/23 10:43 Dose: Infused Documented By: Admin: 12/31/23 09:42 Dose: 15 mls/hr Documented By: DINO Lactated Ringer's (Lr) 1,000 mls @ 60 mls/hr IV .[id number] SIDNEY Stop: 12/31/23 22:39 Last Admin: 12/31/23 09:38 Dose: Not Given Documented By: DINO Cefazolin Sodium (Ancef 2000mg) 2,000 mg in 15 mls @ 3.75 mls/min IV PREOP SIDNEY; Protocol Stop: 12/31/23 18:00 Last Admin: 12/31/23 10:45 Dose: 3.75 mls/min Documented By: [id number] Discontinued Medications Bupivacaine HCl/Epinephrine Bitart (Bupivacaine/Epinephrine 0.25% 1:200,000 30 Ml Vial) Confirm Administered Dose 30 ml .ROUTE .STK-MED ONE Stop: 12/31/23 10:29 Last Admin: 12/31/23 12:32 Dose: 5 ml Documented By: JORGE LUIS Bupivacaine HCl/Epinephrine Bitart (Bupivacaine/Epinephrine 0.25% 1:200,000 30 Ml Vial) Confirm Administered Dose 30 ml .ROUTE .STK-MED ONE Stop: 12/31/23 10:49 Last Admin: 12/31/23 12:32 Dose: 20 ml Documented By: JORGE LUIS Cefazolin Sodium (Cefazolin 330 Mg/Ml 1 Gm Vial) Confirm Administered Dose 990 mg .ROUTE .STK-MED ONE Stop: 12/31/23 10:29 Last Admin: 12/31/23 11:37 Dose: 990 mg Documented By: JORGE LUIS Hydromorphone HCl (Hydromorphone Inj 1 Mg/Ml Syringe) 0.25 mg IV Q5M PRN PRN Reason: PACU Use Only-Pain Stop: 12/31/23 17:42 Last Admin: 12/31/23 14:15 Dose: 0.25 mg Documented By: Admin: 12/31/23 14:10 Dose: 0.25 mg Documented By: Admin: 12/31/23 14:05 Dose: 0.25 mg Documented By: Admin: 12/31/23 14:00 Dose: 0.25 mg Documented By: ASAEL Miscellaneous ( Floseal Hemostatic Matrix 10ml) 20 ml TOP ONCE ONE Stop: 12/31/23 11:24 Last Admin: 12/31/23 13:23 Dose: 30 ml Documented By: JORGE LUIS
[2023-12-31] MEDS: oxyCODONE HCL IR 5 MG TAB (IMMEDIATE RELEASE) PO PRN (16:32)
[2023-12-31] MEDS: LACTATED RINGER'S 1,000 ML IV SCH (16:32)
[2023-12-31] MEDS: TAMSULOSIN HCL 0.4 MG CAP PO SCH (20:32)
[2023-12-31] MEDS: traZODone HCL 100 MG TAB PO SCH (20:32)
[2023-12-31] MEDS: ATORVASTATIN 40 MG TAB PO SCH (20:32)
[2023-12-31] MEDS: DOCUSATE SODIUM/SENNA 50/8.6MG TAB PO SCH (20:32)
[2023-12-31 23:47] LABS: Hematocrit (blood only) 31.7 % (42.0-52.0); Hemoglobin 10.6 g/dl (14.0-18.0)
[2024-01-01] MEDS: ACETAMINOPHEN 500 MG TAB PO PRN (00:49)
[2024-01-01] MEDS: POLYETHYLENE (MIRALAX) 17 GM PACK PO SCH (05:27)
[2024-01-01 06:49] LABS: Basophils # (auto) 0.02 K/uL (0.00-0.20); Basophils % (auto) 0.2 %; Hematocrit (blood only) 29.1 % (42.0-52.0); Hemoglobin 9.8 g/dl (14.0-18.0); Immature Granulocytes # (auto) 0.09 K/uL (0.01-0.20); Immature Granulocytes % (auto) 0.7 %; Lymphocytes # (auto) 0.48 K/uL (1.20-3.40); Lymphocytes % (auto) 3.7 %; Mean Corpuscular Hemoglobin 32.8 pg (25.0-34.0); Mean Corpuscular Hgb Conc 33.7 g/dL (32.0-36.0); Mean Corpuscular Volume 97.3 fL (80.0-100.0); Mean Platelet Volume 10.4 fL (9.4-12.4); Monocytes # (auto) 2.94 K/uL (0.11-0.59); Monocytes % (auto) 22.7 %; Neutrophils % (auto) 72.7 %; Platelet Count 130 K/uL (130-400); RDW Coefficient of Variation 13.4 % (11.5-14.5); RDW Standard Deviation 48.1 fL (36.4-46.3); Red Blood Count 2.99 M/uL (4.70-6.10); White Blood Count 12.93 K/ul (4.8-10.8)
[2024-01-01 07:51] LABS: BUN Creatinine Ratio 21.5 (10-20); Calcium 8.2 mg/dl (8.6-10.3); Creatinine Clr Calc Pharmacy 85.6 ml/min; Est GFR (African American) 97.6 ml/min; Est GFR (Non-African American) 84.2 ml/min; Magnesium 1.5 mg/dl (1.7-2.4); Potassium 4.2 mmol/L (3.5-5.1)
--- NOTE | 2024-01-01 08:30 | Orthopedic Progress Note ---
Date of Service January 01, 2024 Assessment & Plan (1) Neurogenic claudication due to lumbar spinal stenosis: Plan This time initiate physical therapy monitor his KENDAL output hopefully discharge home in the next few days. Admission and Anticipated Discharge Date Admission Date: December 31, 2023 Subjective Back pain is controlled denies any leg pain. Physical Exam Physical Exam: Patient is currently sitting up in bed. He is comfortable. Good strength manfred ting. Results & Data Vital Signs (Past 12 Hours) Vital Signs Temp Pulse Resp BP Pulse Ox O2 Del Method O2 Flow Rate 01/01/24 07:24 36.7 C 69 16 117/73 98 Nasal Cannula 2 01/01/24 03:39 36.8 C 70 18 116/74 96 Nasal Cannula 12/31/23 22:32 36.9 C 83 18 103/66 94 Nasal Cannula 12/31/23 20:35 Nasal Cannula 2 Queries Orthopedic Spine Acute Posthemorrhagic Anemia: Yes
[2024-01-01] MEDS: rOPINIRole HCL 2 MG TABLET PO SCH (08:47)
[2024-01-01] MEDS: CHOLECALCIFEROL 125 MCG (5,000 UNITS) TAB PO SCH (08:47)
[2024-01-01] MEDS: oxyBUTYnin chloride 5 MG TAB PO SCH (08:47)
[2024-01-01] MEDS: GABAPENTIN 300 MG CAP PO SCH (08:48)
[2024-01-01] MEDS: ASPIRIN 81 MG ECTAB PO SCH (09:19)
--- NOTE | 2024-01-01 09:34 | Hospitalist Progress Note ---
Date of Service January 01, 2024 Assessment & Plan (1) S/P lumbar spine operation: Plan Mark Dumont is an 83y/o M with PMHx of HLD, COPD, OTIS lung nodule, permanent afib s/p Watchman procedure in 2021 [not on anticoagulation therapy], CAD, hepatomegaly, GERD, BPH w/ LUTS, history of prostate cancer, restless legs syndrome, tobacco use disorder [80 pk yr - quit in 2004], TERA and other problems listed below who was referred to our [facility] Hospitalist Team for post-operat fredi medical management after undergoing T12-L2 decompression and T12-L1 fusion with hardware involvement by Dr. King on 12/31/23. S/P Lumbar Spine Operation: Acute blood loss anemia POD#1 s/p T12-L2 decompression and T12-L1 fusion with hardware involvement with Dr. King. EBL: 1,100mL & Pre-Op Hgb: 13 [12/19/23] Post op Hb of 9.5g/dl Per ortho for pain control, wound care, anticoagulation and activities. Continue incentive spirometry, PT/OT when appropriate. Follow AM labs. Transfuse if hb is less than 7. Can continue using CERTIFIED NURSE OPERATING ROOM gabapentin and trazodone for neurogenic claudication sx's. Permanent Afib s/p Watchman Procedure: Follows [facility] as outpatient. No longer on metoprolol or AC the rapy. Can continue ASA therapy as recommended at most recent cardiology visit prior to surgery on 12/16/23. HLD & CAD: Continue ASA and atorvastatin. Had nuclear stress testing done 12/04/23 that was negative for inducible ischemia. Patient with h/o cardiac catheterization in 2018 with findings of a 60% mid LAD lesion that was not considered hemodynamically significant. BPH w/ LUTS: Continue tamsulosin and oxybutynin. Restless Legs Syndrome: Continue ropinirole. Prostate Cancer: On ADT with bicalutamide started 10/23/2022, and leuprolide (Eligard) 22.5mg [id number] started 10/29/2022. Definitive radiation therapy recently completed 03/27/2023. Follows [facility] - most recent visit on 11/12/23. COPD, H/O Tobacco Use Left Upper Lobe Lung Nodule: Has followed [facility] in the past. 80 pk yr smoking hx. OTIS nodule stable - no further f/u required according to documentation from 2020. DVT Prophylaxis: SCDs/TEDs as per primary care team. Code Status: FULL CODE PCP: Cammie Martinez PA-C Disposition: Admitted in Med/Surg - Discharge planning as per primary care team. Thank you for this consultation. We will follow the patient with you during their hospital stay. You can reach a member of the [facility] Hospitalist Team 11/11 via [employer]. This chart was completed in part utilizing Speech Voice Recognition Software. Grammatical errors, random word insertions, pronoun errors, and incomplete sentences are an occasional consequence of this system due to software limitations, ambient noise, and hardware issues. Any formal questions or concerns about the content, text, or information contained within the body of this dictation should be directly addressed to the provider for clarification. Admission and Anticipated Discharge Date Admission Date: December 31, 2023 Subjective Patient seen and examined at bedside. Comfortable; not in distress. Denies fever, chills, chest pain, shortness of breath, abdominal pain or urinary symptoms. No significant overnight events Review of Systems Review of Systems: All systems reviewed & are unremarkable except as noted in Subjective Physical Exam Physical Exam: Constitutional: Alert oriented x 3; not in distress. Respiratory: normal respiratory effort, lungs clear to auscultation, no wheeze, rales, rhonchi. Normal insp/exp effort, no accessory muscle use Cardiovascular: RRR, no murmur, no edema Vessels: no JVD or carotid bruit Chest: normal inspection of chest Abdomen: normal bowel sounds, soft, nontender, no hepatosplenomegaly Musculoskeletal: Drain in place with serosanguineous output. Skin: no rashes, warm and dry normal turgor Neurologic: PERRL, EOMI, accommodation nl, no face palsy, no dysarthria CN's II- XI intact bilaterally and moves all extremities Psychiatric: A+Ox3, euthymic affect Results & Data Results & Data Vital Signs (Past 12 Hours) Vital Signs Temp Pulse Resp BP Pulse Ox O2 Del Method O2 Flow Rate 01/01/24 07:24 36.7 C 69 16 117/73 98 Nasal Cannula 2 01/01/24 03:39 36.8 C 70 18 116/74 96 Nasal Cannula 12/31/23 22:32 36.9 C 83 18 103/66 94 Nasal Cannula
[2024-01-01] MEDS: MAGNESIUM SULFATE / D5W 1 GM/100 ML BAG IV SCH (10:05)
[2024-01-01] MEDS: traMADol HCL 50 MG TABLET PO PRN (14:11)
[2024-01-01] MEDS: HYDROmorphone INJ 1 MG/ML SYRINGE IV PRN (18:24)
[2024-01-02] MEDS: ONDANSETRON INJ 2 MG/ML 2 ML VIAL IV PRN (02:13)
--- NOTE | 2024-01-02 09:37 | Hospitalist Progress Note ---
Date of Service January 02, 2024 Assessment & Plan (1) S/P lumbar spine operation: Plan Mark Dumont is an 83y/o M with PMHx of HLD, COPD, OTIS lung nodule, permanent afib s/p Watchman procedure in 2021 [not on anticoagulation therapy], CAD, hepatomegaly, GERD, BPH w/ LUTS, history of prostate cancer, restless legs syndrome, tobacco use disorder [80 pk yr - quit in 2004], TERA and other problems listed below who was referred to our [facility] Hospitalist Team for post-operat fredi medical management after undergoing T12-L2 decompression and T12-L1 fusion with hardware involvement by Dr. King on 12/31/23. S/P Lumbar Spine Operation: Acute blood loss anemia s/p T12-L2 decompression and T12-L1 fusion with hardware involvement with Dr. King on 12/31/2023 EBL: 1,100mL & Pre-Op Hgb: 13 [12/19/23] Post op Hb of 9.5g/dl Per ortho for pain control, wound care, anticoagulation and activities. Continue incentive spirometry, PT/OT when appropriate. Follow AM labs. Transfuse if hb is less than 7. Can continue using HIRED WORKER gabapentin and trazodone for neurogenic claudication sx's. Permanent Afib s/p Watchman Procedure: Follows [facility] as outpatient. No longer on metoprolol or AC therapy. Can continue ASA therapy as recommended at most recent cardiology visit prior to surgery on 12/16/23. HLD & CAD: Continue ASA and atorvastatin. Had nuclear stress testing done 12/04/23 that was negative for inducible ischemia. Patient with h/o cardiac catheterization in 2018 with findings of a 60% mid LAD lesion that was not considered hemodynamically significant. BPH w/ LUTS: Continue tamsulosin and oxybutynin. Restless Legs Syndrome: Continue ropinirole. Prostate Cancer: On ADT with bicalutamide started 10/23/2022, and leuprolide (Eligard) 22.5mg [id number] started 10/29/2022. Definitive radiation therapy recently completed 03/27/2023. Follows [facility] - most recent visit on 11/12/23. COPD, H/O Tobacco Use Left Upper Lobe Lung Nodule: Has followed [facility] in the past. 80 pk yr smoking hx. OTIS nodule stable - no further f/u required according to documentation from 2020. DVT Prophylaxis: SCDs/TEDs as per primary care team. Code Status: FULL CODE PCP: Cammie Martinez PA-C Disposition: Admitted in Med/Surg - Discharge planning as per primary care team. Thank you for this consultation. We will follow the patient with you during their hospital stay. You can reach a member of the [facility] Hospitalist Team 11/11 via [employer]. This chart was completed in part utilizing Speech Voice Recognition Software. Grammatical errors, random word insertions, pronoun errors, and incomplete sentences are an occasional consequence of this system due to software limitations, ambient noise, and hardware issues. Any formal questions or concerns about the content, text, or information contained within the body of this dictation should be directly addressed to the provider for clarification. Admission and Anticipated Discharge Date Admission Date: December 31, 2023 Subjective Patient seen and examined at bedside. Comfortable; not in distress. Denies fever, chills, chest pain, shortness of breath, abdominal pain or urinary symptoms. No significant overnight events Review of Systems Review of Systems: All systems reviewed & are unremarkable except as noted in Subjective Physical Exam Physical Exam: Constitutional: Alert oriented x 3; not in distress. Respiratory: normal respiratory effort, lungs clear to auscultation, no wheeze, rales, rhonchi. Normal insp/exp effort, no accessory muscle use Cardiovascular: RRR, no murmur, no edema Vessels: no JVD or carotid bruit Chest: normal inspection of chest Abdomen: normal bowel sounds, soft, nontender, no hepatosplenomegaly Musculoskeletal: Drain in place with serosanguineous output. Skin: no rashes, warm and dry normal turgor Neurologic: PERRL, EOMI, accommodation nl, no face palsy, no dysarthria CN's II- XI intact bilaterally and moves all extremities Psychiatric: A+Ox3, euthymic affect Results & Data Results & Data Vital Signs (Past 12 Hours) Vital Signs Temp Pulse Resp BP Pulse Ox O2 Del Method O2 Flow Rate 01/02/24 08:15 36.8 C 18 109/69 Nasal Cannula 2 01/01/24 23:42 37.6 C H 96 H 18 112/72 91 Nasal Cannula 2
--- NOTE | 2024-01-02 10:46 | Orthopedic Progress Note ---
Date of Service January 02, 2024 Assessment & Plan (1) Neurogenic claudication due to lumbar spinal stenosis: Plan: At this time we will continue physical therapy monitor KENDAL operatively discharge home the next few days. Admission and Anticipated Discharge Date Admission Date: December 31, 2023 Subjective Patient's back pain is controlled. He is tolerating physical therapy. Physical Exam Physical Exam: Patient is in his chair at the bedside. Is good strength testing. Peers comfortable. Results & Data Vital Signs (Past 12 Hours) Vital Signs Temp Pulse Resp BP Pulse Ox O2 Del Method O2 Flow Rate 01/02/24 08:33 87 94 Nasal Cannula 2 01/02/24 08:15 36.8 C 18 109/69 Nasal Cannula 2 01/01/24 23:42 37.6 C H 96 H 18 112/72 91 Nasal Cannula 2 Queries Orthopedic Spine Acute Posthemorrhagic Anemia: Yes
[2024-01-02] MEDS: ONDANSETRON 4 MG OD TAB PO PRN (12:28)
[2024-01-03 07:09] LABS: ALC (manual) 1.63 K/uL (1.2-3.4); ANC (manual) 8.38 K/uL (1.4-6.5); Basophils # (manual) 0.12 K/uL (0-0.2); Basophils % (manual) 1 %; Hematocrit (blood only) 24.2 % (42.0-52.0); Lymphocytes # (manual) 1.63 K/uL (1.2-3.4); Lymphocytes % (manual) 14 %; Mean Corpuscular Hemoglobin 32.4 pg (25.0-34.0); Mean Corpuscular Hgb Conc 33.1 g/dL (32.0-36.0); Mean Platelet Volume 10.2 fL (9.4-12.4); Monocytes # (manual) 1.51 K/uL (0.11-0.59); Monocytes % (manual) 13 %; Neutrophils # (manual) 8.38 K/uL (1.40-6.50); Neutrophils % (manual) 72 %; Platelet Count 140 K/uL (130-400); Polychromasia 2+; RDW Coefficient of Variation 13.9 % (11.5-14.5); RDW Standard Deviation 49.7 fL (36.4-46.3); Red Blood Count 2.47 M/uL (4.70-6.10); White Blood Count 11.64 K/ul (4.8-10.8)
--- NOTE | 2024-01-03 08:11 | Orthopedic Progress Note ---
Date of Service January 03, 2024 Assessment & Plan (1) Neurogenic claudication due to lumbar spinal stenosis: Plan: Patient is stable at this point. His KENDAL drain is still placing a significant mount of drainage however. He is still little unsteady on his feet as well. I am going to have him continue with physical therapy continue with GI DVT prophylaxis. If he does well today and his pain is better controlled we will get him home tomorrow. Admission and Anticipated Discharge Date Admission Date: December 31, 2023 Subjective Patient was seen bedside in room 382. He is postop day #3 status post removal of hardware thoracolumbar decompression and fusion from T11 to the sacrum. He states is doing pretty well today. The pain is relatively well-controlled. He has been up and walking with physical therapy. He is tolerating oral intake but has not yet had a bowel movement. His KENDAL drain is in place. He has no other co mplaints. He denies any other numbness, tingling, or paresthesias. Physical Exam Physical Exam: On exam he is alert and oriented. His abdomen soft nontender his calves are supple and nontender. Strength and sensation are both intact his KENDAL drain is in place and is holding suction he has had 45 cc out of the shift and 72 on the previous. Cardiovascular exam reveals with gross abnormalities Results & Data Vital Signs (Past 12 Hours) Vital Signs Temp Pulse Resp BP Pulse Ox O2 Del Method O2 Flow Rate 01/03/24 08:02 94 Room Air 01/03/24 07:38 37.2 C 89 16 105/61 92 Room Air 01/03/24 05:28 93 Room Air 01/02/24 20:59 36.5 C 91 H 20 118/76 97 Nasal Cannula 2 01/02/24 20:30 Nasal Cannula 2
--- NOTE | 2024-01-03 08:49 | Hospitalist Progress Note ---
Date of Service January 03, 2024 Assessment & Plan (1) S/P lumbar spine operation: Plan Mark Dumont is an 83y/o M with PMHx of HLD, COPD, OTIS lung nodule, permanent afib s/p Watchman procedure in 2021 [not on anticoagulation therapy], CAD, hepatomegaly, GERD, BPH w/ LUTS, history of prostate cancer, restless legs syndrome, tobacco use disorder [80 pk yr - quit in 2004], TERA and other problems listed below who was referred to our [facility] Hospitalist Team for post-operat fredi medical management after undergoing T12-L2 decompression and T12-L1 fusion with hardware involvement by Dr. King on 12/31/23. S/P Lumbar Spine Operation: Acute blood loss anemia s/p T12-L2 decompression and T12-L1 fusion with hardware involvement with Dr. King on 12/31/2023 EBL: 1,100mL & Pre-Op Hgb: 13 [12/19/23] Post op Hb of 9.5g/dl, downtrended to 8.0 on 01/02 Per ortho for pain control, wound care, anticoagulation and activities. Continue incentive spirometry, PT/OT when appropriate. Follow AM labs. Transfuse if hb is less than 7. Can continue using INTERNAL CONTROL SPECIALIST gabapentin and trazodone for neurogenic claudication sx's. will benefit from Iron supplement at discharge. Permanent Afib s/p Watchman Procedure: Follows [facility] as outpatient. No longer on metoprolol or AC therapy. Can continue ASA therapy as recommended at most recent cardiology visit prior to surgery on 12/16/23. HLD & CAD: Continue ASA and atorvastatin. Had nuclear stress testing done 12/04/23 that was negative for inducible ischemia. Patient with h/o cardiac catheterization in 2018 with findings of a 60% mid LAD lesion that was not considered hemodynamically significant. BPH w/ LUTS: Continue tamsulosin and oxybutynin. Restless Legs Syndrome: Continue ropinirole. Prostate Cancer: On ADT with bicalutamide started 10/23/2022, and leuprolide (Eligard) 22.5mg [id number] started 10/29/2022. Definitive radiation therapy recently completed 03/27/2023. Follows [facility] - most recent visit on 11/12/23. COPD, H/O Tobacco Use Left Upper Lobe Lung Nodule: Has followed w/ [facility] in the past. 80 pk yr smoking hx. OTIS nodule stable - no further f/u required according to documentation from 2020. DVT Prophylaxis: SCDs/TEDs as per primary care team. Code Status: FULL CODE PCP: Cammie Martinez PA-C Disposition: Admitted in Med/Surg - Discharge planning as per primary care team. Thank you for this consultation. We will follow the patient with you during their hospital stay. You can reach a member of the [facility] Hospitalist Team 11/11 via [employer]. This chart was completed in part utilizing Speech Voice Recognition Software. Grammatical errors, random word insertions, pronoun errors, and incomplete sentences are an occasional consequence of this system due to software limitations, ambient noise, and hardware issues. Any formal questions or concerns about the content, text, or information contained within the body of this dictation should be directly addressed to the provider for clarification. Admission and Anticipated Discharge Date Admission Date: December 31, 2023 Subjective Patient seen and examined at bedside. Patient continues to have significant amount of drainage from his KENDAL drain Reports being unsteady on his feet No significant events overnight; vital signs are stable Review of Systems Review of Systems: All systems reviewed & are unremarkable except as noted in Subjective Physical Exam Physical Exam: Constitutional: Alert oriented x 3; not in distress. Respiratory: normal respiratory effort, lungs clear to auscultation, no wheeze, rales, rhonchi. Normal insp/exp effort, no accessory muscle use Cardiovascular: RRR, no murmur, no edema Vessels: no JVD or carotid bruit Chest: normal inspection of chest Abdomen: normal bowel sounds, soft, nontender, no hepatosplenomegaly Musculoskeletal: Drain in place with serosanguineous output. Skin: no rashes, warm and dry normal turgor Neurologic: PERRL, EOMI, accommodation nl, no face palsy, no dysarthria CN's II- XI intact bilaterally and moves all extremities Psychiatric: A+Ox3, euthymic affect Results & Data Results & Data Vital Signs (Past 12 Hours) Vital Signs Temp Pulse Resp BP Pulse Ox O2 Del Method O2 Flow Rate 01/03/24 08:02 94 Room Air 01/03/24 07:38 37.2 C 89 16 105/61 92 Room Air 01/03/24 05:28 93 Room Air 01/02/24 20:59 36.5 C 91 H 20 118/76 97 Nasal Cannula 2
[2024-01-03] MEDS: bisacodyL 10 MG SUPP PR PRN (18:08)
[2024-01-04 07:08] VITALS: TEMP 98.8
--- NOTE | 2024-01-04 08:14 | Discharge Summary ---
Date of Service January 04, 2024 Admission HPI Per Admitting Provider This is a this is an 83-year-old male who presents with chronic persistent back and bilateral leg pain after failing course of nonoperative care is here for surgical invention. Discharge Data Consultations 12/31/23 15:25 Consult Hospitalist Routine Procedures Performed Operation Date: 12/31/23 10:45 Actual Procedures p T12-L2 Decompression, T12-L1 Fusion, Interbody Cage L1-L2, Spinal Cord Monitoring(Not Applicable) - Jose King, [facility] Course (1) Neurogenic claudication due to lumbar spinal stenosis: Patient is a pleasant 83-year-old male with history physical examination and radiographic images consistent with the above-mentioned diagnosis. For this reason is brought to the operating room on 12/31/2023 and undergone a move of hardware T12-L2 decompression with continuation of his fusion from T12-S1. This performed by Dr. King under general anesthesia. Left the operating room with a KENDAL drain Baneg[place] in place and was transferred to PACU in stable condition. He is placed on GI and DVT prophylaxis and transferred to the orthopedic floor. He was placed on pain medication. Was seen by physical therapy postop day 1 for ambulation and gait training. On postoperative day #4 his drainage had slowed down he was independent and was deemed safe for home discharge. His discharge instructions were to change his dressing once daily until there is no drainage and once there is no drainage he may shower. He should walk around his house for exercise the first 2 weeks. He should not left anything heavier than 5 to [address] until seen in the office for his 2-week postop visit. He was to see our office approximately 2 weeks out from surgery or sooner if he developed any increasing pain, drainage from the incision, fevers or chills, or any neurologic decline.
[2024-01-04 11:21] VITALS: BP 118/63; PULSE 78; RESP 14; O2SAT 93
--- NOTE | 2024-01-04 11:59 | Hospitalist Progress Note ---
Date of Service January 04, 2024 Assessment & Plan (1) S/P lumbar spine operation: Plan Mark Dumont is an 83y/o M with PMHx of HLD, COPD, OTIS lung nodule, permanent afib s/p Watchman procedure in 2021 [not on anticoagulation therapy], CAD, hepatomegaly, GERD, BPH w/ LUTS, history of prostate cancer, restless legs syndrome, tobacco use disorder [80 pk yr - quit in 2004], TERA and other problems listed below who was referred to our [facility] Hospitalist Team for post-operat fredi medical management after undergoing T12-L2 decompression and T12-L1 fusion with hardware involvement by Dr. King on 12/31/23. S/P Lumbar Spine Operation: Acute blood loss anemia s/p T12-L2 decompression and T12-L1 fusion with hardware involvement with Dr. King on 12/31/2023 EBL: 1,100mL & Pre-Op Hgb: 13 [12/19/23] Post op Hb of 9.5g/dl, downtrended to 8.0 on 01/02 Per ortho for pain control, wound care, anticoagulation and activities. Continue incentive spirometry, PT/OT when appropriate. Can continue using FINANCE PROFESSOR gabapentin and trazodone for neurogenic claudication sx's. I discussed with him regarding following up with his primary care doctor and getting started on iron supplement. He is agreeable with that. Permanent Afib s/p Watchman Procedure: Follows [facility] as outpatient. No longer on metoprolol or AC therapy. Can continue ASA therapy as recommended at most recent cardiology visit prior to surgery on 12/16/23. HLD & CAD: Continue ASA and atorvastatin. Had nuclear stress testing done 12/04/23 that was negative for inducible ischemia. Patient with h/o cardiac catheterization in 2018 with findings of a 60% mid LAD lesion that was not considered hemodynamically significant. BPH w/ LUTS: Continue tamsulosin and oxybutynin. Restless Legs Syndrome: Continue ropinirole. Prostate Cancer: On ADT with bicalutamide started 10/23/2022, and leuprolide (Eligard) 22.5mg [id number] started 10/29/2022. Definitive radiation therapy recently completed 03/27/2023. Follows [facility] - most recent visit on 11/12/23. COPD, H/O Tobacco Use Left Upper Lobe Lung Nodule: Has followed / [facility] in the past. 80 pk yr smoking hx. OTIS nodule stable - no further f/u required according to documentation from 2020. DVT Prophylaxis: SCDs/TEDs as per primary care team. Code Status: FULL CODE PCP: Cammie Martinez PA-C Disposition: Admitted in Med/Surg - Discharge planning as per primary care team. Thank you for this consultation. We will follow the patient with you during their hospital stay. You can reach a member of the [facility] Hospitalist Team 11/11 via [employer]. This chart was completed in part utilizing Speech Voice Recognition Software. Grammatical errors, random word insertions, pronoun errors, and incomplete sentences are an occasional consequence of this system due to software limitations, ambient noise, and hardware issues. Any formal questions or concerns about the content, text, or information contained within the body of this dictation should be directly addressed to the provider for clarification. Admission and Anticipated Discharge Date Admission Date: December 31, 2023 Subjective Patient seen and examined at bedside. Comfortable; not in distress. Denies fever, chills, chest pain, shortness of breath, abdominal pain or urinary symptoms. No significant overnight events He also had a bowel movement yesterday Review of Systems Review of Systems: All systems reviewed & are unremarkable except as noted in Subjective Physical Exam 2 Physical Exam: Constitutional: Alert oriented x 3; not in distress. Respiratory: normal respiratory effort, lungs clear to auscultation, no wheeze, rales, rhonchi. Normal insp/exp effort, no accessory muscle use Cardiovascular: RRR, no murmur, no edema Vessels: no JVD or carotid bruit Chest: normal inspection of chest Abdomen: normal bowel sounds, soft, nontender, no hepatosplenomegaly Musculoskeletal: Drain in place with serosanguineous output. Skin: no rashes, warm and dry normal turgor Neurologic: PERRL, EOMI, accommodation nl, no face palsy, no dysarthria CN's II- XI intact bilaterally and moves all extremities Psychiatric: A+Ox3, euthymic affect Results & Data Results & Data Vital Signs (Past 12 Hours) Vital Signs Temp Pulse Pulse Resp BP Pulse Ox O2 Del Method 01/04/24 11:17 37.1 C 78 14 118/63 93 Room Air 01/04/24 10:58 37.1 C 80 94 H 18 110/70 96 01/04/24 07:35 Room Air 01/04/24 07:07 37.1 C 80 18 110/70 96 Room Air
== END 2024-01-04 12:19 | disposition home or self-care (01) | DRG 454 ==
LOC: ASU 08:55 → 3N 13:34